=== PATIENT | male | born 1990 | race Caucasian/White ===

== ENCOUNTER 2018-08-16 11:48 | Emergency (ER) | payer OTHER ==
[2018-08-16 12:18] VITALS: BP 157/87
[2018-08-16] MEDS ORDERED: Penicillin VK TAB* 250 MG PO ONE (12:28)
--- NOTE | 2018-08-16 12:32 | UC ---
Dental HPI - HPI Summary HPI Summary: The patient is a 28-year-old male that presents with a left upper toothache and gum sensitivity as well as left cheek swelling 1 day. He initially thought it may be due to his sinuses because he has had a little sinus congestion and postnasal drip. Yesterday he states his dental pain was worse than today. Denies any fever or chills. He has no history of diabetes. He denies any history of heart murmur. - History of Current Complaint Chief Complaint: UCGeneralIllness Stated Complaint: FACE SWELLING Time Seen by Provider: 08/16/18 12:14 Hx Obtained From: Patient Onset/Duration: Gradual Onset, Lasting Hours Severity: Mild Pain Intensity: 4 Pain Scale Used: 0-10 Numeric Aggravating Factor(s): Chewing Alleviating Factor(s): OTC Meds Related History: Swelling Dental: 1 - tender - Allergies/Home Medications Allergies/Adverse Reactions: Allergies Allergy/AdvReac Type Severity Reaction Status Date / Time No Known Allergies Allergy Verified 08/16/18 12:12 Home Medications: Home Medications Acetaminophen [Tylenol] 2 tab PO TID 08/16/18 [History Confirmed 08/16/18] guaiFENesin [Mucinex] 1 tab PO BID PRN 08/16/18 [History Confirmed 08/16/18] PMH/Surg Hx/FS Hx/Imm Hx Previously Healthy: Yes - Surgical History Surgical History: None - Family History Known Family History: Positive: Other - DAD had ASD and CVA Negative: Hypertension, Diabetes - Social History Alcohol Use: Weekly Substance Use Type: None Smoking Status (MU): Current Some Day Smoker - Immunization History Most Recent Tetanus Shot: UTD Review of Systems Constitutional: Negative Skin: Negative Eyes: Negative ENT: Dental Pain Respiratory: Negative Cardiovascular: Negative Gastrointestinal: Negative Genitourinary: Negative Motor: Negative Neurovascular: Negative Musculoskeletal: Negative Neurological: Negative Psychological: Negative Is Patient Immunocompromised?: No All Other Systems Reviewed And Are Negative: Yes Physical Exam Triage Information Reviewed: Yes Appearance: Well-Appearing, No Pain Distress, Well-Nourished Vital Signs: Initial Vital Signs Temp 98 F 08/16/18 12:13 Pulse 63 08/16/18 12:13 Resp 18 08/16/18 12:13 BP 157/87 08/16/18 12:13 Pulse Ox 100 08/16/18 12:13 Vital Signs Reviewed: Yes Eyes: Positive: Conjunctiva Clear ENT: Positive: Hearing grossly normal. Negative: Nasal congestion, Nasal drainage, Trismus, Muffled voice, Hoarse voice, Dental tenderness, Sinus tenderness Dental: Positive: Percussion Tenderness @ - see image Neck: Positive: Supple, Nontender, No Lymphadenopathy Respiratory: Positive: Lungs clear, Normal breath sounds, No respiratory distress, No accessory muscle use Cardiovascular: Positive: RRR, No Murmur Abdominal Exam: Normal Musculoskeletal: Positive: ROM Intact, No Edema Neurological: Positive: Alert, Muscle Tone Normal Psychological Exam: Normal Skin Exam: Normal Dental Complaint Course/Dx - Differential Dx/Diagnosis Provider Diagnoses: dental abscess Discharge - Sign-Out/Discharge Documenting (check all that apply): Patient Departure All imaging exams completed and their final reports reviewed: No Studies - Discharge Plan Condition: Stable Disposition: HOME Prescriptions: Penicillin VK 500 MG TAB(NF) [Penicillin VK 500 mg Tab] 500 mg PO QID #28 tab Patient Education Materials: Dental Abscess (ED), Warm Compress or Soak (ED) [facility] [facility] - If Needed Additional Instructions: I suspect a dental abscess as the cause of your facial swelling I saw no discrete abscess so I suggest you see your dentist for further evaluation aakash puentes recheck in 48 hours if not better Your BP was higher than we would like to see Please get it rechecked in 2-12 weeks - Billing Disposition and Condition Condition: STABLE Disposition: Home Images Head: 1 - swollen
== END 2018-08-16 12:40 | disposition home or self-care (01) ==
LOC: UCEAST 11:48
CPT/HCPCS: 99212; A9270-GY; G0463

== ENCOUNTER 2018-08-17 10:38 | Emergency (ER) | payer OTHER ==
--- NOTE | 2018-08-18 11:47 | UC ---
Discharge - Sign-Out/Discharge Documenting (check all that apply): Post-Discharge Follow Up All imaging exams completed and their final reports reviewed: No Studies - Discharge Plan Disposition: LEFT WITHOUT BEING SEEN Referrals: [facility] Adi CAMERON [Primary Care Provider] - - Billing Disposition and Condition Disposition: Left Without Being Seen
== END 2018-08-17 11:00 | disposition left against medical advice (07) ==
LOC: UCEAST 10:38
DX: R68.89 Other general symptoms and signs (principal); Z53.21 Procedure and treatment not carried out due to patient leaving prior to being seen by health care provider

== ENCOUNTER 2018-08-17 11:16 | Emergency (ER) | payer OTHER ==
[2018-08-17] MEDS ORDERED: NS 0.9% 1000 ML* 1,000 ML IV ONE (11:33)
--- NOTE | 2018-08-17 11:51 | ED ---
Throat Pain/Nasal Congestion - HPI Summary HPI Summary: Patient is a 28-year-old male who presents emergency department for left-sided facial swelling 2 days. Patient states he started with some sinus congestion and drainage about 3 days ago which led to left-sided facial swelling. Patient states he has some mild diffuse dental pain on the left. He denies fever, chills, nausea, vomiting. [facility] and started [facility] Pen-Vee K. Patient states swelling increased today and he went back to [facility] and was sent to the emergency department for CT scan for further evaluation of abscess. Patient has no past medical history. Symptoms are mild in severity. Patient states pain is minimal at this time. No current modifying factors. - History of Current Complaint Chief Complaint: EDRashSkinAbscess Time Seen by Provider: 08/17/18 11:25 Hx Obtained From: Patient - Allergies/Home Medications Allergies/Adverse Reactions: Allergies Allergy/AdvReac Type Severity Reaction Status Date / Time No Known Allergies Allergy Verified 08/16/18 12:12 PMH/Surg Hx/FS Hx/Imm Hx Previously Healthy: Yes Endocrine/Hematology History: Denies: Hx Diabetes Cardiovascular History: Denies: Hx Hypertension, Hx Pacemaker/ICD History: Denies: Hx Renal Disease Sensory History: Denies: Hx Hearing Aid Psychiatric History: Denies: Hx Panic Disorder Infectious Disease History: No Infectious Disease History: Denies: Traveled Outside the [place] in Last 30 Days - Family History Known Family History: Positive: Other - DAD had ASD and CVA Negative: Hypertension, Diabetes - Social History Occupation: Student Lives: Alone Alcohol Use: Weekly Substance Use Type: Reports: None Smoking Status (MU): Current Some Day Smoker Review of Systems Constitutional: Negative Negative: Fever, Chills Eyes: Negative Positive: Dental Pain, Nasal Discharge Cardiovascular: Negative Respiratory: Negative Gastrointestinal: Negative Negative: Vomiting, Nausea Neurological: Negative All Other Systems Reviewed And Are Negative: Yes Physical Exam Triage Information Reviewed: Yes Vital Signs On Initial Exam: Initial Vitals Temp Pulse Resp BP Pulse Ox 98.8 F 79 18 139/86 99 08/17/18 11:17 08/17/18 11:17 08/17/18 11:17 08/17/18 11:17 08/17/18 11:17 Vital Signs Reviewed: Yes Appearance: Positive: Well-Appearing - Patient sitting on bed in no acute distress. Skin: Positive: Warm, Dry Head/Face: Positive: Normal Head/Face Inspection Eyes: Positive: Normal ENT: Positive: Pharynx normal, TMs normal Dental: Positive: Other - Mild left-sided facial swelling over maxillary region extending to mandible. No overlying erythema or induration. No obvious dental caries or abscess noted. No trismus. No swelling of the tongue or submandibular edema. Neck: Positive: Supple, Nontender, No Lymphadenopathy Respiratory/Lung Sounds: Positive: Clear to Auscultation, Breath Sounds Present Cardiovascular: Positive: Normal, RRR Neurological: Positive: Normal, CN Intact II-III Psychiatric: Positive: Affect/Mood Appropriate Diagnostics - Vital Signs Vital Signs Temp Pulse Resp BP Pulse Ox 08/17/18 11:17 98.8 F 79 18 139/86 99 - Laboratory Result Diagrams: 08/17/18 12:14 08/17/18 12:14 Lab Statement: Any lab studies that have been ordered have been reviewed, and results considered in the medical decision making process. EENT Course/Dx - Course Course Of Treatment: Pt. present from for imaging and further evaluation of facial swelling. He is afebrile and well appearing. Will check basic labs and ct scan. Pt. given iv fliuds, toradol and clindamycin. CBC shows mild leukocytosis of 13.9. Labs otherwise unremarkable. CT scan shows soft tissue edema without drainable abscess, reading per radiology. REsults discussed. Will have pt. continue penvk. To apply warm compresses. NSAIDS as directed. To schedule a close f.u apt. with his dentist. To return to ER if sxs change or worsen. - Differential Diagnoses Differential Diagnoses: Cellulitis, Dental Abscess, Dental Caries, Good's Angina - Diagnoses Provider Diagnoses: Facial swelling, Dental infection Discharge - Sign-Out/Discharge Documenting (check all that apply): Patient Departure - Discharge Plan Condition: Good Disposition: HOME Patient Education Materials: Dental Abscess (ED) Referrals: [facility] Adi CAMERON [Medical Doctor] - Additional Instructions: Schedule a follow up appointment with a dentist and [facility] Continue pen vk as directed Apply warm compresses NSAIDS for pain and swelling as directed such as ibuprofen Return to ER for high fever, vomiting, increased swelling, difficulty swallowing or breathing - Billing Disposition and Condition Condition: GOOD Disposition: Home
[2018-08-17 12:20] LABS: ABS Basophils 0.1 10^3/ul (0-0.2); ABS Eosinophils 0.1 10^3/ul (0-0.6); ABS Lymphocytes 1.4 10^3/ul (1.0-4.8); ABS Monocytes 0.9 10^3/ul (0-0.8); ABS Neutrophils 11.5 10^3/ul (1.5-7.7); ABS Nucleated RBC 0 10^3/ul; Eosinophil % 0.4 % (0-6); Hematocrit 44 % (42-52); Hemoglobin 15.3 g/dl (14.0-18.0); Lymphocyte % 10.3 % (25-47); Mean Corpuscular HGB Conc 35 g/dl (31-36); Mean Corpuscular Hemoglobin 31 pg (27-31); Mean Corpuscular Volume 89 fL (80-94); Mean Platelet Volume 7.3 um3 (7.4-10.4); Nucleated Red Blood Cells % 0.3; Platelet Count 315 10^3/ul (150-450); Red Blood Count 4.96 10^6/ul (4.00-5.40); Red Cell Distribution Width 14 % (10.5-15); White Blood Count 13.9 10^3/ul (3.5-10.8)
[2018-08-17 12:39] LABS: EGFR Non-African American 110.3 (>60)
[2018-08-17] MEDS ORDERED: Iohexol 300* (CONTRAST) 10 ML SDV IV ONE (13:06)
--- NOTE | 2018-08-17 13:33 | RAD ---
INDICATION: LEFT facial swelling. Question abscess. COMPARISON: No relevant prior exams available on the [facility] [place]. TECHNIQUE: Multidetector CT base of the skull through mandible with 75 mL Omnipaque 300 IV contrast. Multiplanar reformation. REPORT: Soft tissue edema at the subcutaneous tissue plane and along the muscles of facial expression at the LEFT base mandible and apical region extending to the malar eminence and infraorbital margin superiorly. No loculated soft tissue plane abscess collection evident. Unremarkable orbital contents. Unremarkable pharyngeal mucosal space contours and parapharyngeal fat. Unremarkable parotid and submandibular glands. Small reactive lymph nodes at the LEFT level 2, 3, and 1 measuring up to 0.9 cm short axis. Negative for lymphadenopathy based on short axis criteria. Patent RIGHT dominant and variant diminutive LEFT internal jugular veins. Unremarkable carotid arteries. No osseous fractures, periosteal reaction, or osteolysis. Mild mucosal thickening at the LEFT maxillary sinus. Negative for paranasal sinus fluid levels. Clear mastoid air spaces. IMPRESSION: #. Soft tissue edema at the subcutaneous tissue plane and along the muscles of facial expression at the LEFT base mandible and apical region extending to the malar eminence and infraorbital margin superiorly. No loculated soft tissue plane abscess collection evident. #. Small reactive appearing LEFT level 2, 3, 1 lymph nodes. #. No osseous abnormality.
[2018-08-17] MEDS ORDERED: Clindamycin 300 MG IVPREMIX(* 300 MG/50 ML SDV IVPB ONE (13:38)
[2018-08-17] MEDS ORDERED: Ketorolac INJ* 30 MG/ML 1 ML VIAL IV PUSH ONE (13:38)
[2018-08-17 15:17] VITALS: BP 143/79
== END 2018-08-17 15:16 | disposition home or self-care (01) ==
LOC: ED 11:16
DX: R22.0 Localized swelling, mass and lump, head (principal); K04.7 Periapical abscess without sinus; F17.200 Nicotine dependence, unspecified, uncomplicated
CPT/HCPCS: 36415; 70487; 80053; 85025; 96361; 96365; 96375; 99282; J1885; Q9967